=== PATIENT | male | born 1965 | race Caucasian/White ===

== ENCOUNTER 2019-11-06 20:57 | Inpatient (IN) | payer OTHER, SELFPAY ==
[2019-11-06] MEDS ORDERED: Lidocaine 2% MPF 10 ML AMP (For Epidural Use) ONE (21:17)
[2019-11-06] MEDS ORDERED: Lidocaine 1% PF 5 ML VIAL ONE (21:18)
[2019-11-06 21:29] LABS: #Basophils 0.1 thou/uL (0.0-0.2); #Lymphocytes 0.7 thou/uL (1.20-3.40); #Monocytes 0.7 thou/uL (0.11-0.59); %Basophils 0.6 % (0.0-1.0); %Eosinophils 0.1 % (0.0-10.0); %Lymphocytes 8.4 % (21.0-51.0); %Monocytes 7.7 % (0.0-10.0); %Neutrophils 83.1 % (42.0-75.0); Hemoglobin 13.1 g/dL (14.0-18.0); Mean Corpuscular HGB CONC 33.3 g/dL (32.0-36.0); Mean Corpuscular Hemoglobin 32.1 pg (27.0-31.0); Mean Corpuscular Volume 96.4 fL (78.0-98.0); Mean Platelet Volume 7.5 fL (7.4-10.4); Platelet Count 179 thou/uL (130-400); RBC Distribution Width 13.2 % (11.5-14.5); Red Blood Cell (RBC) Count 4.09 mill/uL (4.70-6.10); White Blood Cell (WBC) Count 8.4 thou/uL (4.8-10.8)
--- NOTE | 2019-11-06 21:37 | CT ---
CT BRAIN WITHOUT CONTRAST: 11/06/19 HISTORY: Trauma. COMPARISON: None. FINDINGS: No acute hemorrhage or infarct. No midline shift or mass effect. Ventricular size and extra-axial CSF spaces are normal. Calvarium is intact. There is a forehead laceration with subcutaneous emphysema e xtending to the nasal labia. The underlying frontal sinus is intact. IMPRESSION: Forehead laceration with subcutaneous emphysema without acute posttraumatic intracranial sequela. POS: HOME
[2019-11-06 21:56] LABS: ALT (SGPT) 54 U/L (8-55); AST (SGOT) 79 U/L (5-34); Albumin 4.3 g/dL (3.5-5.0); Alkaline Phosphatase 71 U/L (40-110); Anion Gap 22 mmol/L (10-20); BUN (Urea Nitrogen) 8 mg/dL (8.4-25.7); Bilirubin, Total 1.9 mg/dL (0.2-1.2); Calc. Creatinine Clearance 0 mL/min (70-130); Calcium 9.2 mg/dL (7.8-10.44); Carbon Dioxide 23 mmol/L (22-29); Chloride 88 mmol/L (98-107); Estimated GFR-MDRD Greater than 90; Globulin 3.5 g/dL (2.4-3.5); Glucose 190 mg/dL (70-105); Potassium 3.6 mmol/L (3.5-5.1); Protein, Total 7.8 g/dL (6.0-8.3); Sodium 129 mmol/L (136-145)
[2019-11-06] MEDS ORDERED: Adacel (T-DAP) 0.5 ML SYRINGE ONE (22:51)
[2019-11-06] MEDS ORDERED: Labetalol HCl 100 MG/20 ML VIAL SLOW IVP PRN (22:55)
[2019-11-06] MEDS ORDERED: cloNIDine 0.1 MG TAB PO PRN (22:55)
[2019-11-06] MEDS ORDERED: Promethazine HCl 12.5 MG in Sodium Chloride 0.9% 50 ML IVPB PRN (22:55)
[2019-11-06] MEDS ORDERED: hydrALAZINE 20 MG/ML VIAL SLOW IVP PRN (22:55)
[2019-11-06] MEDS ORDERED: Ondansetron PF 4 MG/2 ML Vial IVP PRN (22:55)
[2019-11-06] MEDS ORDERED: Morphine 2 MG/ML SYRINGE SLOW IVP PRN (22:55)
[2019-11-06] MEDS ORDERED: Senokot S 8.6-50 MG TAB PO PRN (22:56)
[2019-11-06] MEDS ORDERED: HYDROcodone/Acetaminophen 5/325 mg Tablet PO PRN (22:56)
[2019-11-06] MEDS ORDERED: Acetaminophen 325 MG TAB PO PRN (22:56)
[2019-11-06] MEDS ORDERED: Bisacodyl 5 MG TAB PO PRN (22:56)
--- NOTE | 2019-11-06 22:58 | PDOC.HHP ---
Hospitalist HPI - History of Present Illness Altered mental status History of Present Illness: Patient is a 54 year old male with no PMH who presents to ED for 1 day of altered mental status and R flank pain, patient reports he was in normal state of health until today. This morning he developed urinary incontinence, retention and hesitancy, this is new symptoms for him and he has never had before. He drank a lot of water, including rapid ingestion of whole gallon of water, and became altered, reportedly he also fell and struck his face at some point, has some small facial lacerations which were sutured in the ED. He denies seeing a doctor in a long time, has no diagnosed PMH, and is a poor historian. In ED, Na noted at 127, patient to be admitted for hyponatremia and confusion. Hospitalist ROS - Review of Systems Constitutional: reports: weakness. denies: fever, chills, sweats Eyes: denies: pain, vision change ENT: reports: other (facial lacerations). denies: ear pain, ear discharge Respiratory: denies: cough, dry, shortness of breath, pleuritic pain, sputum Cardiovascular: denies: chest pain, palpitations, orthopnea, light headedness Gastrointestinal: denies: nausea, vomiting, abdominal pain Genitourinary: reports: dysuria, frequency, incontinence, hematuria, retention Musculoskeletal: reports: other (R flank pain) Skin: denies: rash, lesions, raysa, bruising, other Neurological: denies: weakness, numbness, incoordination, change in speech, confusion, seizures, other Other: altered mental status All other systems reviewed; all pertinent +/- noted in HPI/Subj Hospitalist History - Past Medical History Other Medical History: no pmh, discussed with patient - Past Surgical History Past Surgical History: reports: Appendectomy - Family History Family History: reports: no pertinent history - Social History Smoking Status: Never smoker Alcohol: reports: None Drugs: reports: none - Exam General Appearance: NAD, awake alert Eye: PERRL, anicteric sclera ENT: no oropharyngeal lesions, moist mucosa ENT - other findings: facial lacerations sutures, blood dried in [place]: supple, symmetric, no JVD, no thyromegaly, no lymphadenopathy, no carotid bruit Heart: RRR, no murmur, no gallops, no rubs, normal peripheral pulses Respiratory: CTAB, no wheezes, no rales, no ronchi, normal chest expansion, no tachypnea, normal percussion Gastrointestinal: soft, non-tender, non-distended, normal bowel sounds, no palpable masses, no hepatomegaly, no splenomegaly, no bruit Extremities: no cyanosis, no clubbing, no edema Skin: normal turgor, no lesions, no rashes Neurological: cranial nerve grossly intact, normal sensation to touch, no weakness, no focal deficits, no new deficit Neurological - other findings: altered mental status Musculoskeletal: normal tone, normal strength, no muscle wasting Psychiatric: normal affect, normal behavior, A&O x 3 Hospitalist Results - Labs Result Diagrams: 11/06/19 21:13 11/06/19 21:13 Lab results: WBC 8.4 thou/uL (4.8-10.8) 11/06/19 21:13 Hgb 13.1 g/dL (14.0-18.0) L 11/06/19 21:13 Hct 39.4 % (42.0-52.0) L 11/06/19 21:13 MCV 96.4 fL (78.0-98.0) 11/06/19 21:13 Plt Count 179 thou/uL (130-400) 11/06/19 21:13 Neutrophils % 83.1 % (42.0-75.0) H 11/06/19 21:13 Sodium 129 mmol/L (136-145) L 11/06/19 21:13 Potassium 3.6 mmol/L (3.5-5.1) 11/06/19 21:13 Chloride 88 mmol/L (98-107) L 11/06/19 21:13 Carbon Dioxide 23 mmol/L (22-29) 11/06/19 21:13 BUN 8 mg/dL (8.4-25.7) L 11/06/19 21:13 Creatinine 0.81 mg/dL (0.7-1.3) 11/06/19 21:13 Glucose 190 mg/dL (70-105) H 11/06/19 21:13 Calcium 9.2 mg/dL (7.8-10.44) 11/06/19 21:13 Total Bilirubin 1.9 mg/dL (0.2-1.2) H 11/06/19 21:13 AST 79 U/L (5-34) H 11/06/19 21:13 ALT 54 U/L (8-55) 11/06/19 21:13 Alkaline Phosphatase 71 U/L (40-110) 11/06/19 21:13 Serum Total Protein 7.8 g/dL (6.0-8.3) 11/06/19 21:13 Albumin 4.3 g/dL (3.5-5.0) 11/06/19 21:13 Hospitalist H&P A/P - Plan Plan: Patient is a 54 year old male admitted for: # symptomatic hyponatremia - presumably due to polydypsia secondary to urinary retenion, patien was attempting to improve urinary symptoms with fluid intake, developed altered mental status, unknown PMH and unsure if chronic or acute - admit to floor - fluid restriction, gentle IVF - trend BMP, I/Os, urinary retention workup as below - consider nephrology consult based on clincial progress # urinary retention/hesitancy - new today - bladder scan post void herrera may be needed based on results - UA ordered - PSA - will order ct abdomen/pelvis to rule out kidney stones or hydronephrosis # altered mental status - presumed due to low Na, follow up UA and other studies ordered
[2019-11-06 23:21] LABS: Bacteria/HPF None Seen HPF (None Seen); Bilirubin Negative (Negative); Blood, Urine 1+ (Negative); Clarity Clear (Clear); Glucose, Urine (Dipstick) 70 mg/dL (Negative); Leukocyte Negative Leu/uL (Negative); Nitrite Negative (Negative); Protein, Urine (Dipstick) Negative (Neg-Trace); RBC/HPF 0-3 HPF (0-3); Squamous Epithelial None Seen HPF (0-3); Urobilinogen Normal mg/dL (Less than 2); WBC/HPF 0-3 HPF (0-3)
[2019-11-06] MEDS: Sodium Chloride 0.9% 1,000 ML IV SCH (23:57)
[2019-11-07 00:11] VITALS: BMI 27.4
[2019-11-07] MEDS ORDERED: Dextrose 50% Abboject 50 ML SYRINGE SLOW IVP PRN (04:53)
[2019-11-07] MEDS ORDERED: Insulin Regular 300 UNITS/3 ML VIAL SC PRN (04:53)
[2019-11-07] MEDS ORDERED: Dextrose 5% in Water 1,000 ML IV PRN (04:53)
[2019-11-07 06:41] LABS: #Lymphocytes 1.3 thou/uL (1.20-3.40); #Monocytes 0.8 thou/uL (0.11-0.59); %Basophils 0.4 % (0.0-1.0); %Eosinophils 0.5 % (0.0-10.0); %Lymphocytes 17.6 % (21.0-51.0); %Monocytes 10.9 % (0.0-10.0); %Neutrophils 70.5 % (42.0-75.0); Hemoglobin 13.2 g/dL (14.0-18.0); Mean Corpuscular HGB CONC 32.6 g/dL (32.0-36.0); Mean Corpuscular Hemoglobin 31.7 pg (27.0-31.0); Mean Corpuscular Volume 97.2 fL (78.0-98.0); Mean Platelet Volume 7.2 fL (7.4-10.4); Platelet Count 155 thou/uL (130-400); RBC Distribution Width 13.3 % (11.5-14.5); Red Blood Cell (RBC) Count 4.16 mill/uL (4.70-6.10); White Blood Cell (WBC) Count 7.1 thou/uL (4.8-10.8)
[2019-11-07 06:47] LABS: Hemoglobin A1c 4.8 % (4.0-6.0)
[2019-11-07 07:01] LABS: Anion Gap 12 mmol/L (10-20); BUN (Urea Nitrogen) 6 mg/dL (8.4-25.7); Calc. Creatinine Clearance 148 mL/min (70-130); Calcium 8.9 mg/dL (7.8-10.44); Carbon Dioxide 27 mmol/L (22-29); Chloride 99 mmol/L (98-107); Estimated GFR-MDRD Greater than 90; Glucose 96 mg/dL (70-105); Magnesium 2.1 mg/dL (1.6-2.6); Potassium 3.6 mmol/L (3.5-5.1); Sodium 134 mmol/L (136-145)
[2019-11-07] MEDS ORDERED: Sodium Chloride 0.65% Nasal 44 ML BOT EA NARE PRN (07:34)
[2019-11-07] MEDS ORDERED: Cepastat Lozenges 1 LOZ PO PRN (07:34)
[2019-11-07] MEDS ORDERED: Loperamide HCl 2 MG CAP PO PRN (07:34)
[2019-11-07] MEDS ORDERED: Calcium Carbonate 500 MG ChewTAB PO PRN (07:34)
[2019-11-07] MEDS ORDERED: Diabetic Tussin 200 MG/10 ML UDCUP PO PRN (07:34)
[2019-11-07] MEDS ORDERED: Loratadine 10 MG TAB PO PRN (07:34)
--- NOTE | 2019-11-07 07:59 | CT ---
PRELIMINARY REPORT/[facility]/EMERGENCY AFTER HOURS PROCEDURE: PROCEDURE: CT Scan Abdomen and Pelvis without IV Contrast Material. HISTORY: Urinary retention. TECHNIQUE: Axial images were performed with multiplanar reconstructions without IV contrast material. The patient was not given oral contrast material. COMPARISON: 12/06/2014. FINDINGS: Clear lung bases. Mild diffuse hepatic steatosis. Small splenule anterior to the spleen . Adrenals and pancreas are unremarkable. Kidneys show no masses or obstruction. Normal biliary tract. No abdominal ascites or pneumoperitoneum. Trace atherosclerosis aorta. No lymphadenopathy. No bowel obstruction or inflammation. Mild colonic diverticulosis. Appendix is not visualized. Pelvis shows no masses or free fluid in normal urinary bladder. No acute bony abnormality. IMPRESSION: No urinary tract stones or obstructive uropathy. No other urinary track abnormality. M ild colonic diverticulosis. Mild diffuse hepatic steatosis. ELECTRONICALLY SIGNED BY: Espinoza Aviles MD November 07, 2019 12:43:19 AM CDT FINAL REPORT ABDOMEN CT WITHOUT CONTRAST PELVIC CT WITHOUT CONTRAST: HISTORY: Urinary retention. COMPARISON: 12/06/2014. FINDINGS: Abdomen CT: Lung bases:Bibasilar scarring and atelectasis. Heart size: Normal heart size. No significant pericardial fluid. Aorta: Normal caliber. No periaortic fat stranding. Solid organs: Limited evaluation by the lack of IV contrast. No acute solid organ abnormality. There is evidence of hepatic steatosis. Lymph nodes: No gastrohepatic, retrocrural or periportal lymphadenopathy. Gallbladder: Normal caliber. No CT evidence of cholecystitis. Mesentery: No mass, lymphadenopathy, free air or free fluid. Kidneys: Bilaterally, no hydronephrosis, nephrolithiasis or perinephric fat stranding. Bilateral uret ers have a normal caliber. No hydroureter, periureteral fat stranding or ureterolithiasis.. Alimentary canal: Limited evaluation by the lack of oral contrast. No evidence of a small bowel obstr uction. Appendix is not appreciated. No obvious inflammation of the cecal apex. Scattered fecal material in a nondistended, nondilated colon. Diverticulosis, without evidence of diverticulitis. Muc osal prominence of the sigmoid colon is nonspecific. CT PELVIS: No mass, adenopathy, free air or free fluid. Urinary bladder: No calcifications or mucosal abnormality. Osseous structures: No lytic or blastic lesions. IMPRESSION: 1. This report is in agreement with initial report by [facility]. 2. No evidence of obstructive uropathy. 3. Diverticulosis, without evidence of diverticulitis. Mucosal prominence of the sigmoid colon is pre sumed to be due to inadequate distention. Colonoscopy if clinically warranted. Transcribed Date/Time: 11/07/2019 8:05 AM
[2019-11-07] MEDS: Famotidine 20 MG TAB PO SCH ×2 (08:51→19:48)
[2019-11-07] MEDS: Enoxaparin Sodium 40 MG/0.4 ML SYRINGE SC SCH (08:51)
[2019-11-07] MEDS: Polyethylene Glycol 3350 17 GM Packet PO SCH (08:58)
--- NOTE | 2019-11-07 09:39 | PDOC.HOSPP ---
- Subjective Encounter Date: 11/07/19 Encounter Time: 07:00 Subjective: Patient seen and examined. No new complaints. No overnight events - Objective Vital Signs & Weight: Vital Signs (12 hours) Temp Pulse Resp BP Pulse Ox 11/07/19 08:50 98.7 F 78 16 155/90 H 98 11/07/19 05:16 98 F 11/07/19 00:13 99.1 F 76 16 147/87 H 95 Weight Weight 202 lb 6 oz I&O: 11/06/19 11/07/19 11/08/19 06:59 06:59 06:59 Intake Total 1450 Output Total 3850 350 Balance -2400 -350 Result Diagrams: 11/07/19 06:27 11/07/19 06:27 Additional Labs: Accuchecks 11/07/19 06:09 POC Glucose 97 Radiology Reviewed by me: Yes EKG Reviewed by me: Yes Hospitalist ROS - Review of Systems Constitutional: denies: fever, chills, sweats, weakness, malaise, other Eyes: denies: pain, vision change, conjunctivae inflammation, eyelid inflammation, redness, other ENT: denies: ear pain, ear discharge, nose pain, nose discharge, nose congestion , mouth pain, mouth swelling, throat pain, throat swelling, other Respiratory: denies: cough, dry, shortness of breath, hemoptysis, SOB with excertion, pleuritic pain, sputum, wheezing, other Cardiovascular: denies: chest pain, palpitations, orthopnea, paroxysmal noc. dyspnea, edema, light headedness, other Gastrointestinal: denies: nausea, vomiting, abdominal pain, diarrhea, constipation, melena, hematochezia, other Genitourinary: denies: dysuria, frequency, incontinence, hematuria, retention, other Musculoskeletal: denies: neck pain, shoulder pain, arm pain, back pain, hand pain, leg pain, foot pain, other Skin: denies: rash, lesions, raysa, bruising, other - Medication Medications: Active Medications Generic Name Dose Route Start Last Admin Trade Name Freq PRN Reason Stop Dose Admin Enoxaparin Sodium 40 mg 11/07/19 09:00 11/07/19 08:51 Lovenox SC 40 mg 0900 SETH Administration Famotidine 20 mg 11/07/19 09:00 11/07/19 08:51 Pepcid PO 20 mg BID SETH Administration Sodium Chloride 1,000 mls @ 75 mls/hr 11/06/19 23:00 11/06/19 23:57 Normal Saline 0.9% IV 1,000 mls .[id number] SETH Administration Morphine Sulfate 2 mg 11/06/19 22:55 11/07/19 01:56 Morphine SLOW IVP 2 mg Q4H PRN Administration severe pain 4-10 Polyethylene Glycol 17 gm 11/07/19 09:00 11/07/19 08:58 Miralax PO Not Given DAILY SETH Sodium Chloride 10 ml 11/07/19 09:00 11/07/19 08:58 Flush - Normal Saline IVF Not Given Q12HR SETH - Exam General Appearance: NAD, awake alert Eye: PERRL, anicteric sclera ENT: normocephalic atraumatic, no oropharyngeal lesions ENT - other findings: suture site clean and healthy over scalp Neck: supple, symmetric, no JVD, no thyromegaly Heart: RRR, no murmur, no gallops, no rubs Respiratory: CTAB, no wheezes, no rales, no ronchi Gastrointestinal: soft, non-tender, non-distended, normal bowel sounds Extremities: no cyanosis, no clubbing, no edema Skin: normal turgor, no lesions Neurological: cranial nerve grossly intact, normal sensation to touch, no weakness, no focal deficits Musculoskeletal: normal tone, normal strength Psychiatric: normal affect, normal behavior Hosp A/P (1) Acute metabolic encephalopathy Code(s): G93.41 - METABOLIC ENCEPHALOPATHY Status: Acute (2) Hyponatremia Code(s): E87.1 - HYPO-OSMOLALITY AND HYPONATREMIA Status: Acute (3) Acute urinary retention Code(s): R33.8 - OTHER RETENTION OF URINE Status: Acute - Plan old records reviewed/req, PT/OT, dc herrera today will DC herrera catheter and monitor for any retention, if retention , will consider flomax or urology evaluation continue PT/OT continue IVF, sodium improving Repeat labs tomorrow If stable, OK to DC tomorrow
[2019-11-07] MEDS: Sodium Chloride 0.9% 1,000 ML IV SCH ×2 (13:30→19:43)
[2019-11-07 16:42] LABS: Anion Gap 11 mmol/L (10-20); BUN (Urea Nitrogen) 8 mg/dL (8.4-25.7); Calc. Creatinine Clearance 135 mL/min (70-130); Calcium 8.9 mg/dL (7.8-10.44); Carbon Dioxide 26 mmol/L (22-29); Chloride 101 mmol/L (98-107); Estimated GFR-MDRD Greater than 90; Glucose 94 mg/dL (70-105); Potassium 4.1 mmol/L (3.5-5.1); Sodium 134 mmol/L (136-145)
[2019-11-07 19:48] VITALS: BP 127/93; TEMP 98.3
[2019-11-08 06:15] LABS: #Basophils 0.1 thou/uL (0.0-0.2); #Eosinphils 0.1 thou/uL (0.0-0.7); #Lymphocytes 1.7 thou/uL (1.20-3.40); #Monocytes 0.5 thou/uL (0.11-0.59); #Neutrophils 3.2 thou/uL (1.40-6.50); %Basophils 1.4 % (0.0-1.0); %Neutrophils 57.6 % (42.0-75.0); Hemoglobin 13.2 g/dL (14.0-18.0); Mean Corpuscular Hemoglobin 33.1 pg (27.0-31.0); Mean Corpuscular Volume 97.3 fL (78.0-98.0); Mean Platelet Volume 7.3 fL (7.4-10.4); Platelet Count 150 thou/uL (130-400); RBC Distribution Width 13.3 % (11.5-14.5); White Blood Cell (WBC) Count 5.5 thou/uL (4.8-10.8)
[2019-11-08 06:22] LABS: Anion Gap 13 mmol/L (10-20); BUN (Urea Nitrogen) 7 mg/dL (8.4-25.7); Calc. Creatinine Clearance 139 mL/min (70-130); Calcium 8.7 mg/dL (7.8-10.44); Carbon Dioxide 23 mmol/L (22-29); Chloride 106 mmol/L (98-107); Estimated GFR-MDRD Greater than 90; Glucose 96 mg/dL (70-105); Potassium 3.4 mmol/L (3.5-5.1); Sodium 139 mmol/L (136-145)
[2019-11-08 06:25] LABS: Anion Gap 15 mmol/L (10-20); BUN (Urea Nitrogen) 7 mg/dL (8.4-25.7); Calc. Creatinine Clearance 137 mL/min (70-130); Calcium 8.7 mg/dL (7.8-10.44); Carbon Dioxide 22 mmol/L (22-29); Chloride 106 mmol/L (98-107); Estimated GFR-MDRD Greater than 90; Glucose 96 mg/dL (70-105); Potassium 3.5 mmol/L (3.5-5.1); Sodium 139 mmol/L (136-145)
[2019-11-08] MEDS: Enoxaparin Sodium 40 MG/0.4 ML SYRINGE SC SCH (10:05)
[2019-11-08] MEDS: Polyethylene Glycol 3350 17 GM Packet PO SCH (10:06)
[2019-11-08] MEDS: Famotidine 20 MG TAB PO SCH (10:06)
--- NOTE | 2019-11-09 01:37 | DIS ---
DATE OF ADMISSION: 11/06/2019 DATE OF DISCHARGE: 11/08/2019 DISCHARGE DIAGNOSES: 1. Symptomatic hyponatremia, presently due to polydipsia. 2. Urine retention. 3. Metabolic encephalopathy, acute. DISCHARGE MEDICATIONS: The patient was offered amlodipine for hypertension, but he refused. HISTORY OF PRESENT ILLNESS AND HOSPITAL COURSE: The patient is a 54-year-old male with no reported past medical history, who presented to the ED with altered mental status and right flank pain. He also developed urine retention on the morning of presentation. He was drinking a lot of water, reportedly a whole gallon. He became confused and fell hitting his head at some point. Facial laceration was noted in the ER and was sutured. He does not follow with any medical doctor. His sodium level was found to be 127 and he was subsequently admitted for hyponatremia and confusion. He was admitted to the floor and was managed with fluid restriction. Burns catheter was inserted to alleviate urine retention. On the second day of hospitalization, his sodium level improved gradually to 129, then 134, and 139 on the day of discharge. The patient's confusion resolved. His creatinine level which was 0.8 on the day of admission improved slightly to 0.7 on the day of discharge. Burns catheter was subsequently removed and the patient underwent a voiding trial, which was successful. CT scan of the abdomen did not reveal any obstructive uropathy. CT scan of the head did not show any acute posttraumatic intracranial sequelae. His blood pressure was elevated during his hospital stay, but the patient taking any medications at home. Job ID: [id number]
== END 2019-11-08 12:39 | disposition home or self-care (01) | DRG 640 ==
LOC: ERS 20:57 → ONC 23:43
PROVIDERS: ADMIT Internal Medicine; ATTEND Internal Medicine
PROC: 0HQ1XZZ Repair Face Skin, External Approach (ICD-10-PCS; principal; 2019-11-06)
PROC: 0T9B70Z Drainage of Bladder with Drainage Device, Via Natural or Artificial Opening (ICD-10-PCS; 2019-11-06)
DX: E87.1 Hypo-osmolality and hyponatremia (principal); G93.41 Metabolic encephalopathy; R63.1 Polydipsia; R33.9 Retention of urine, unspecified; R39.11 Hesitancy of micturition; S01.81XA Laceration without foreign body of other part of head, initial encounter; W19.XXXA Unspecified fall, initial encounter; Z90.49 Acquired absence of other specified parts of digestive tract
CPT/HCPCS: 36415; 36416; 70450; 74176; 80048; 80053; 81003; 81015; 83036; 83735; 85025; 90715; J1650; J2001; J2270